=== PATIENT | female | born 1935 | race Caucasian/White ===

== ENCOUNTER 2017-02-24 14:45 | Inpatient (IN) ==
--- NOTE | 2017-02-24 14:59 | PROVIDER DOCUMENTATION ---
HPI-Respiratory General - General Chief Complaint: Shortness of Breath Stated Complaint: SOB AND COUGH Time Seen by Provider: 02/24/17 14:56 Source: patient Allergies/Adverse Reactions: Patient Allergies Allergy/AdvReac Type Severity Reaction Status Date / Time No Known Allergies Allergy Verified 11/23/15 12:51 Home Medications: Home Medication List Medication Instructions Recorded Confirmed Last Taken Type Aspirin 81 mg PO HS 02/24/17 02/24/17 02/23/17 20:00 History 81 MG - History of Present Illness-Resp Nature of Presenting Problem: Patient is a 81 y/o F that presents with cough/congestion, shortness of breath, hoarseness x 1 week. patient denies chest pain, fever/chills. reports having dark stools and some constipation of late. Quality of Pain: reports: tightness Severity in ED: reports: moderate Onset/Duration: reports: gradual, 1 week ago Timing: reports: still present, constant Context: denies: recent chemotherapy, sports/exercise, aspiration/choking Cough Quality/Degree: reports: moderate, dry cough Current Respiratory Medication Therapy: Initiated see nurses note Modifying Factors: worse with: coughing Associated Symptoms: reports: cough, shortness of breath, short of breath, sore throat. denies: fever/chills, flu-like symptoms, muscle/bodyaches, nasal congestion, nasal drainage Similar Symptoms Previously?: No Recently seen or treated by another doctor?: No Review of Systems - Adult - REVIEW OF SYSTEMS - ADULT Constitutional: denies: chills, fever Eyes: reports: no symptoms reported Ears, Nose, Mouth & Throat: reports: hoarseness, throat pain. denies: ear discharge, ear pain Cardiovascular: denies: chest pain, palpitations, syncope Respiratory: reports: cough, shortness of breath. denies: wheezing Gastrointestinal: reports: other (dark stools). denies: abdominal pain, nausea , vomiting Genitourinary: reports: no symptoms reported Musculoskeletal: denies: back pain, joint pain, neck pain Integumentary: reports: no symptoms reported Neurological: reports: no symptoms reported Psychiatric: reports: no symptoms reported Endocrine: reports: no symptoms reported Hematologic/Lymphatic: reports: no symptoms reported Allergic/Immunologic: reports: no symptoms reported All Other Systems: Reviewed and Negative Past History - Adult - PAST MEDICAL HISTORY-ADULT Review of Records: reports: Old Records Reviewed, Nursing Assessment Review, Medications Reviewed Major Childhood Illnesses: reports: denies history Cardiovascular: reports: denies history Respiratory: reports: denies history Gastrointestinal: reports: denies history Obstetrical/Gynecological: reports: denies history Genitourinary: reports: denies history Musculoskeletal: reports: denies history Neurological: reports: denies history Endocrine/Immune: reports: denies history Other Conditions: reports: denies history - PRIOR SURGERIES/PROCEDURES Surgical/Procedure History: reports: none - IMMUNIZATION STATUS Childhood Immunizations: See Nurse Assessment Flu Vaccine: See Nurse Assessment - FAMILY HISTORY Family History: reviewed, not pertinent - SOCIAL HISTORY Smoking: non-smoker Living Situation: family Physical Exam-General - PHYSICAL EXAM-ADULT Initial Vital Signs Reviewed: Yes - CONSTITUTIONAL General Appearance: alert, mild distress - EYES Eyes: PERRL/EOMI, pink conjunctivae - HEAD, EARS, NOSE, MOUTH & THROAT HENMT: normocephalic/atraumatic, moist mucous membranes, normal ENT inspection - NECK Neck: full range of motion, normal inspection - RESPIRATORY Respiratory: lungs clear, normal breath sounds, no respiratory distress, no accessory muscle use - CARDIOVASCULAR Cardiovascular: regular rate, rhythm, no edema - GASTROINTESTINAL (ABDOMEN) Abdominal Exam: normal bowel sounds, non tender, soft - GENITOURINARY Rectal Exam: normal rectal tone. negative: black stool, hemorrhoids - MUSCULOSKELETAL Back Exam: no CVA tenderness, no vertebral tenderness Extremity: normal inspection, no pedal edema - SKIN Integumentary: pallor. negative: cyanosis - NEUROLOGIC Neurologic: clinical safety specialist II-XII nml as tested, no motor/sensory deficits - PSYCHIATRIC Psych/Mental Status: normal mood/affect, normal thought content, normal thought process, oriented x 3 Progress - PLAN OF CARE/RESULTS Progress/Plan/Lab Results: Vital Signs - 8 hr 02/24/17 14:47 02/24/17 15:03 02/24/17 17:20 Temperature 98.3 F Pulse Rate 63 60 60 Respiratory Rate 16 16 14 Blood Pressure 136/70 136/70 O2 Sat by Pulse Oximetry 98 98 Laboratory Results - last 24 hr 02/24/17 02/24/17 02/24/17 14:50 15:10 15:10 WBC RBC Hgb Hct MCV MCH MCHC RDW Std Deviation Plt Count MPV Immature Gran % (Auto) Neut % (Auto) Lymph % (Auto) [place] % (Auto) Eos % (Auto) Baso % (Auto) Immature Gran # (Auto) Neut # (Auto) Lymph # (Auto) [place] # (Auto) Eos # (Auto) Baso # (Auto) Specimen Type Sample Site pH pCO2 pO2 HCO3 Base Excess Oxyhemoglobin ABG O2 Sat (Calculated) ABG O2 Saturation ABG Carboxyhemoglobin ABG Methemoglobin A-a O2 Difference Total Hemoglobin Lactate Blood Gas Modality FiO2 % Sodium 135 L Potassium 3.7 Chloride 96 L Carbon Dioxide 25 Anion Gap 14 BUN 13 Creatinine 1.0 H Estimated GFR/1.73 m2 53 BUN/Creatinine Ratio 13 Glucose 112 H Calculated Osmolality 271 Calcium 9.9 Total Bilirubin 0.20 AST 57 H ALT 17 Alkaline Phosphatase 55 Troponin T 0.018 Total Protein 8.1 Albumin 4.3 Globulin 4.0 Albumin/Globulin Ratio 1.0 Stool Occult Blood NEGATIVE 02/24/17 02/24/17 15:10 16:13 WBC 4.29 L RBC 3.44 L Hgb 8.3 L Hct 28.3 L MCV 82.3 MCH 24.1 L MCHC 29.3 L RDW Std Deviation 20.7 H Plt Count 314 MPV 9.9 Immature Gran % (Auto) 0.2 Neut % (Auto) 50.3 Lymph % (Auto) 38.2 Sol[place] % (Auto) 8.2 Eos % (Auto) 2.6 Baso % (Auto) 0.5 Immature Gran # (Auto) 0.01 Neut # (Auto) 2.16 Lymph # (Auto) 1.64 Sol[place] # (Auto) 0.35 Eos # (Auto) 0.11 Baso # (Auto) 0.02 Specimen Type ARTERIAL Sample Site L BRACHIAL pH 7.52 H pCO2 32 L pO2 77 HCO3 27.4 H Base Excess 3.1 H Oxyhemoglobin 95.9 ABG O2 Sat (Calculated) 10.2 L ABG O2 Saturation 99.1 ABG Carboxyhemoglobin 2.30 ABG Methemoglobin 1.0 A-a O2 Difference 33.0 Total Hemoglobin 7.5 L Lactate 1.00 Blood Gas Modality ROOM AIR FiO2 % 21.0 Sodium Potassium Chloride Carbon Dioxide Anion Gap BUN Creatinine Estimated GFR/1.73 m2 BUN/Creatinine Ratio Glucose Calculated Osmolality Calcium Total Bilirubin AST ALT Alkaline Phosphatase Troponin T Total Protein Albumin Globulin Albumin/Globulin Ratio Stool Occult Blood Orders Category Date Time Status CHEST-2 VIEWS [RAD] Stat Exams 02/24/17 14:55 Completed ABG [RESP] Routine Lab 02/24/17 16:13 Completed CBC WITH DIFF [HEME] Stat Lab 02/24/17 15:10 Completed CK PROFILE [SP CHEM] Stat Lab 02/24/17 17:08 Ordered COMPREHENSIVE METABOLIC PANEL [CHEM] Stat Lab 02/24/17 15:10 Completed OCCULT BLOOD SCREEN STOOL PL Stat Lab 02/24/17 14:50 Completed TROPONIN T Stat Lab 02/24/17 15:10 Completed TROPONIN T Stat Lab 02/24/17 17:08 Ordered Albuterol 2.5MG/Ipratrop 0.5MG [Duoneb (A & A)] Med 02/24/17 17:08 Discontinued 3 ml INH NOW ONE Aerosol Treatments Routine Oth 02/24/17 17:08 Active Aerosol Treatments Stat Oth 02/24/17 17:08 Active EKG [EKG] Stat Ther 02/24/17 14:55 Draft EKG [EKG] Stat Ther 02/24/17 17:08 Draft Result Diagrams: 02/24/17 15:10 02/24/17 15:10 - EKG 1 Time of EKG reading by physician:: 15:05 EKG Read and Signed by:: Jozef Conde EKG Interpretation (*Must complete 3 of following elements*): Abnormal Rate: 60 Rhythm: regular rhythm QRS: normal ST Wave: non-specific ST changes 2 Time of EKG reading by physician:: 17:21 EKG Read and Signed by:: Jozef Conde EKG Interpretation (*Must complete 3 of following elements*): Abnormal Rate: 58 Rhythm: regular rhythm QRS: normal ST Wave: non-specific ST changes - XRAY 1 XRAY Study: Chest Impression: Abnormal XRAY Interpretation: cmg, calicifed granuloma Departure - Departure Date of Disposition Decision: 02/24/17 Time of Disposition Decision: 17:45 DIAGNOSIS: Weakness Dyspnea Qualifiers: Dyspnea type: shortness of breath Qualified Code(s): R06.02 - Shortness of breath Anemia Qualifiers: Anemia type: unspecified type Qualified Code(s): D64.9 - Anemia, unspecified Disposition: ADMITTED INPATIENT 09 Certified Medical Emergency: Emergent Condition: Stable Additional Freetext Instructions: ED Follow Up Instructions: You have been treated by a care provider in the Emergency Department. These instructions are being provided to you so you can have an understanding of how to care for yourself upon discharge. Upon discharge from the Emergency Department, you are responsible for making arrangements for follow-up care by a physician of your choice. Take all prescribed medications as directed. Return to the Emergency Department immediately for any new or worsening symptoms. You may call the Physician Referral phone number at [phone] to obtain a list of Physicians who are taking new patients. - Critical Care Note This patient required my direct & personal management of CC.: No
--- NOTE | 2017-02-24 15:08 | EKG Report ---
Test Performed on : 02/24/2017 3:05:27 PM Test Reason : sob Blood Pressure : / mmHG Vent. Rate : 060 BPM Atrial Rate : 258 BPM P-R Int : 000 ms QRS Dur : 064 ms QT Int : 360 ms P-R-T Axes : 000 049 165 degrees QTc Int : [address] \T\ T wave abnormality, consider inferior ischemia Abnormal ECG When compared with ECG of 23-NOV-2015 15:37, Junctional rhythm. has replaced Sinus rhythm. Nonspecific T wave abnormality, improved in Anterior leads QT has shortened Unconfirmed Result
[2017-02-24 15:20] LABS: MANUAL DIFF NEEDED? NO
[2017-02-24 15:27] LABS: BASO% 0.5 % (0.0-0.8); EOS# 0.11 X1000 (0.0-0.7); EOS% 2.6 % (0.0-10.0); HEMATOCRIT 28.3 % (37.0-47.0); HEMOGLOBIN 8.3 g/dL (12.0-16.0); IMM GRAN# 0.01 X1000 (0.0-0.04); IMM GRAN% 0.2 % (0.0-0.5); LYMPH# 1.64 X1000 (1.2-3.4); LYMPH% 38.2 % (20.5-51.1); MCH 24.1 PG (27-31); MCHC 29.3 g/dL (33-37); MCV 82.3 FL (81-99); MONO# 0.35 X1000 (0.11-0.59); MONO% 8.2 % (1.7-9.3); MPV 9.9 FL (7.4-10.4); NEUT% 50.3 % (42.2-75.2); PLT 314 X1000 (130-400); RBC 3.44 XMIL (4.2-5.4)
--- NOTE | 2017-02-24 15:39 | Diag Imaging Result Doc PS360 ---
CHEST-2 VIEWS - 02/24/2017 INDICATION: cough TECHNIQUE: COMPARISON: 11/23/2015 FINDINGS: Stable mild cardiomegaly. Stable calcified granuloma in the right midlung. No infiltrates or edema. No pneumothorax or pleural effusion. IMPRESSION: Stable mildly enlarged heart shadow. On the prior CT this was due to a small pericardial effusion. No change from prior. Electronically signed by Husam Boles 02/24/2017 3:37 PM
[2017-02-24 15:55] LABS: ALBUMIN 4.3 g/dL (3.5-5.0); CALCIUM 9.9 mg/dL (8.8-10.2); POTASSIUM 3.7 mmol/L (3.5-5.1); TOTAL BILIRUBIN 0.2 mg/dL (0.20-1.00); TOTAL PROTEIN 8.1 g/dL (6.3-8.3)
[2017-02-24 15:59] LABS: OCCULT BLOOD 1 NEGATIVE (NEGATIVE)
[2017-02-24 16:35] LABS: BE 3.1 mmoll (-3.0-3.0); BLOOD TYPE ARTERIAL; O2(CT) 10.2 mL/dL (15.0-23.0); PCO2(98.6) 32 mmHg (35-45); PO2(98.6) 77 mmHg (60-100); SAMPLE BLOOD; SAO2 99.1 % (95.0-100.0); THB 7.5 g/dL (11.5-17.4); pH(98.6) 7.52 (7.35-7.45)
[2017-02-24 16:38] LABS: DRAW SITE L BRACHIAL; MODALITY ROOM AIR
[2017-02-24] MEDS ORDERED: DUONEB (A & A) INH ONE (17:08)
--- NOTE | 2017-02-24 17:26 | EKG Report ---
Test Performed on : 02/24/2017 5:21:26 PM Test Reason : sob Blood Pressure : / mmHG Vent. Rate : 058 BPM Atrial Rate : 055 BPM P-R Int : 000 ms QRS Dur : 062 ms QT Int : 464 ms P-R-T Axes : 000 041 058 degrees QTc Int : 455 ms Junctional rhythm. Nonspecific T wave abnormality Abnormal ECG When compared with ECG of 24-FEB-2017 15:05, (Unconfirmed) T wave inversion no longer evident in Lateral leads QT has lengthened Unconfirmed Result
[2017-02-24 18:35] LABS: CK INDEX 1.2 (0.0-2.5); CK-MB 4.38 ng/mL (0.0-5.0)
[2017-02-24] MEDS ORDERED: ZOFRAN IV PRN (19:24)
[2017-02-24] MEDS ORDERED: TYLENOL PO PRN (19:24)
[2017-02-24] MEDS ORDERED: NS 1,000 ML IV ONE (19:24)
[2017-02-25 06:50] LABS: BASO% 0.7 % (0.0-0.8); EOS# 0.06 X1000 (0.0-0.7); EOS% 1.3 % (0.0-10.0); HEMATOCRIT 25.6 % (37.0-47.0); HEMOGLOBIN 7.3 g/dL (12.0-16.0); IMM GRAN# 0.02 X1000 (0.0-0.04); IMM GRAN% 0.4 % (0.0-0.5); LYMPH# 1.58 X1000 (1.2-3.4); LYMPH% 34.8 % (20.5-51.1); MANUAL DIFF NEEDED? NO; MCH 23.5 PG (27-31); MCHC 28.5 g/dL (33-37); MCV 82.3 FL (81-99); MONO# 0.27 X1000 (0.11-0.59); MONO% 5.9 % (1.7-9.3); MPV 9.7 FL (7.4-10.4); NEUT% 56.9 % (42.2-75.2); PLT 306 X1000 (130-400); RBC 3.11 XMIL (4.2-5.4)
[2017-02-25 07:01] LABS: ALBUMIN 3.6 g/dL (3.5-5.0); POTASSIUM 3.7 mmol/L (3.5-5.1); TOTAL BILIRUBIN 0.4 mg/dL (0.20-1.00)
[2017-02-25] MEDS ORDERED: SYNTHROID PO ONE (12:31)
[2017-02-25 13:10] LABS: IRON SATURATION 14 %; TIBC 337 ug/dL; TOTAL IRON 46 ug/dL (49-151); UNBOUND IRON 291 ug/dL (112-346)
[2017-02-25 16:57] LABS: MANUAL DIFF NEEDED? NO
[2017-02-25 17:46] LABS: BASO% 0.5 % (0.0-0.8); EOS# 0.05 X1000 (0.0-0.7); EOS% 1.2 % (0.0-10.0); HEMATOCRIT 24.8 % (37.0-47.0); HEMOGLOBIN 7.4 g/dL (12.0-16.0); IMM GRAN# 0.01 X1000 (0.0-0.04); IMM GRAN% 0.2 % (0.0-0.5); LYMPH# 1.52 X1000 (1.2-3.4); LYMPH% 36.9 % (20.5-51.1); MCHC 29.8 g/dL (33-37); MCV 80.5 FL (81-99); MONO# 0.28 X1000 (0.11-0.59); MONO% 6.8 % (1.7-9.3); MPV 9.9 FL (7.4-10.4); NEUT% 54.4 % (42.2-75.2); PLT 305 X1000 (130-400); RBC 3.08 XMIL (4.2-5.4)
[2017-02-26] MEDS: SYNTHROID PO SCH (06:20)
[2017-02-26 16:10] LABS: HEMATOCRIT 26.4 % (37.0-47.0); HEMOGLOBIN 7.8 g/dL (12.0-16.0)
[2017-02-26] MEDS ORDERED: TYLENOL PO ONE (16:11)
[2017-02-26] MEDS ORDERED: BENADRYL PO ONE (16:11)
[2017-02-27 05:42] LABS: HEMATOCRIT 30.7 % (37.0-47.0); HEMOGLOBIN 9.3 g/dL (12.0-16.0)
[2017-02-27] MEDS: SYNTHROID PO SCH (06:00)
[2017-02-27 14:49] LABS: MANUAL DIFF NEEDED? NO
[2017-02-27 14:50] LABS: BASO% 0.8 % (0.0-0.8); EOS# 0.09 X1000 (0.0-0.7); EOS% 2.3 % (0.0-10.0); HEMATOCRIT 31.1 % (37.0-47.0); HEMOGLOBIN 9.6 g/dL (12.0-16.0); IMM GRAN# 0.02 X1000 (0.0-0.04); IMM GRAN% 0.5 % (0.0-0.5); LYMPH# 1.14 X1000 (1.2-3.4); LYMPH% 29.2 % (20.5-51.1); MCH 25.6 PG (27-31); MCHC 30.9 g/dL (33-37); MCV 82.9 FL (81-99); MONO# 0.29 X1000 (0.11-0.59); MONO% 7.4 % (1.7-9.3); MPV 9.4 FL (7.4-10.4); NEUT% 59.8 % (42.2-75.2); PLT 270 X1000 (130-400); RBC 3.75 XMIL (4.2-5.4)
[2017-02-27 14:54] VITALS: BP 148/90
[2017-02-28 15:54] LABS: ALLEN TEST NO
[2017-02-28] MEDS ORDERED: SYNTHROID PO ONE (18:15)
--- NOTE | 2017-03-10 08:29 | HISTORY AND PHYSICAL ---
HISTORY OF PRESENT ILLNESS: The patient is an 81-year-old patient of mine, who I have not seen for quite some time, over a year, and who apparently had not been getting her medications for over a year. She lives in assisted living. She presented to the emergency room complaining of a cough, congestion, and shortness of breath and hoarseness had been present for approximately a week. She denied any fever or chills. She denied any chest pain. She has been having some dark stools and has been constipated lately. She estimates these symptoms have been going on for approximately a week. When she arrived to the ER, she was on no home medications although she is supposed to be taking several including thyroid. PAST MEDICAL HISTORY: She has had a previous history of thyroid disease. Previous history of hypertension. No significant illnesses. PAST SURGICAL HISTORY: She denies any surgical procedures. ALLERGIES: She has an allergy to aspirin. No asthma or hay fever. SOCIAL HISTORY: She is a nonsmoker. She lives not with her family. She lives at assisted living. Her closest relative is a cousin in [place], just above [place], [place]. REVIEW OF SYSTEMS: Constitutional: She denies fever, chills, night sweats, weight gain or weight loss. Eyes: No change in visual acuity or any issues with her sclerae or conjunctiva. Ears, Nose, and Throat: She denies any sinusitis, otitis, but has had some hoarseness and throat pain. Cardiovascular: She denies chest pain, palpitations, edema, PND. Respiratory: She denies any significant phlegm production. She has got a cough and has been somewhat short of breath. Gastrointestinal: She has had some dark stools. Denies any vielka bleeding, melena, hematochezia. No significant abdominal pain. She has a tendency to be constipated. Genitourinary: No dysuria, hematuria, polyuria or pyuria. Musculoskeletal: No significant history of gout or significant specific joint abnormalities. She has had some arthralgias. Skin: No lesions. No rashes. No eczema. Neurologic: No focal deficits. No TIAs. No strokes. Psychiatric: She has no history of any significant psychiatric illnesses. Endocrine: She is on thyroid. She is weak and generally fatigued. No polyuria, polydipsia, or polyphagia. Hematologic: She denies any bleeding, clotting disorder, or any issues with her blood. VITAL SIGNS: At the time of admission, she had a temperature of 98.3 degrees, pulse was 63, respiratory of 16, blood pressure 136/70, O2 saturation was 98%. LABORATORY DATA: Her occult stool was negative. Her comp was negative. BUN was 13, creatinine 1. GFR was 53. Random blood sugar 112. Liver functions generally normal other than slightly elevated AST. Her CK was normal. Troponin was 0.018. CBC: White count was 4290, hematocrit was 28, platelet count was 314,000. Her differential was relatively normal. She had a blood gas drawn on room air; pH was 7 .2, pCO2 was 32, PO2 was 77, carboxyhemoglobin was 2.3. She had an EKG that was regular rhythm and rate. Nonspecific ST-segment changes, otherwise, negative. This was x2. Chest x-ray had cardiomegaly and calcified granuloma. DIAGNOSES ON ADMISSION: 1. Weakness. 2. History of thyroid disease. 3. History of anemia, normochromic. PLAN: She was admitted to the hospital for an evaluation. cc: Jozef Conde MD
--- NOTE | 2017-03-10 17:06 | DISCHARGE SUMMARY ---
ADMISSION DATE: 02/26/2017 DISCHARGE DATE: 02/27/2017 She is a patient of mine that I have not seen in quite some time. Lives in assisted living likewise. She has not been getting her medications filled, one of which is Synthroid for perhaps a year, so she was admitted from the ER with anemia and weakness and a history of perhaps some GI bleeding while she was hospitalized her hematocrit was 28.3. We followed it with hydration fluids, it dropped to 24.8, at which point she was transfused up to 31 on 02/27. Throughout the hospital stay her white count was relatively normal differential but was generally below the normal level on the low side. Platelet count was adequate. She had a relatively normal differential. Blood gases on room air showed that she had a pH 752, pCO2 32, PO2 77. She had a chemistry done on admission which revealed a GFR estimated at 53, BUN 13, creatinine 1.0. Electrolytes were sodium 135, potassium 3.7, chloride 96, CO2 25, mild elevation of her AST. We did a thyroid, her TSH was 153. She had some mild elevations of her CPK that were nonspecific. We did an iron study 46, TIBC 337, 14% saturation. Her unsaturated iron binding was 293. During this hospital stay she had a chest x-ray that was done and it was generally mild cardiomegaly, calcified granuloma in the right mid lung, no infiltrates or edema, no pneumothorax, no effusions. She had electrocardiograms that were negative. Her stools were negative. While she was here in the hospital she had no specific microbiology tested. Her medications during this stay included a dose of Synthroid, she was given albuterol treatments, levothyroxine 50, p.r.n. Tylenol, Benadryl for her transfusion which she tolerated without issues. She was discharged on 02/27, placed on Synthroid, and we will follow her up in the hospital. cc: Jozef Conde MD
== END 2017-02-27 19:19 | disposition home or self-care (01) ==
LOC: P.ED 14:45 → P.MEDSURG 14:45
PROVIDERS: ADMIT Internal Medicine; ATTEND Internal Medicine

== ENCOUNTER 2019-07-01 13:48 | Inpatient (IN) ==
[2019-07-01] MEDS ORDERED: MORPHINE IV ONE (14:24)
--- NOTE | 2019-07-01 14:38 | PROVIDER DOCUMENTATION ---
HPI-General Adult - General Chief Complaint: Fall Stated Complaint: FALL Time Seen by Provider: 07/01/19 14:11 Source: patient, RN/MD Allergies/Adverse Reactions: Patient Allergies Allergy/AdvReac Type Severity Reaction Status Date / Time Sulfa (Sulfonamide Allergy Unknown Verified 07/01/19 14:49 Antibiotics) Home Medications: Home Medication List Medication Instructions Recorded Confirmed Last Taken Type Aspirin 81 mg PO HS 02/24/17 07/01/19 06/30/19 History Levothyroxine [Synthroid] 100 microgm PO DAILY 02/27/17 07/01/19 07/01/19 History Acetaminophen [Tylenol] 1 tab PO PRN PRN 07/01/19 07/01/19 07/01/19 History Difluprednate [Durezol] 1 drp OPHTHALMIC (EYE) DAILY 07/01/19 07/01/19 07/01/19 History Diphenhydramine [Benadryl] 1 tab PO QHS PRN 07/01/19 07/01/19 06/30/19 History Docusate Sodium [Colace] 1 tab PO BID 07/01/19 07/01/19 07/01/19 History Multivitamin [Multivitamins] 1 cap PO DAILY 07/01/19 07/01/19 07/01/19 History Nepafenac [Ilevro] 1 drp OPH DAILY 07/01/19 07/01/19 07/01/19 History Polyvinyl Alcohol/Povidone/Pf 1 drp OPH PRN PRN 07/01/19 07/01/19 Unknown History [Refresh Classic Eye Drops] - History of Present Illness -Gen Adult Nature of Presenting Problems: HOSPICE PATIENT WHO IS GETTING D/C FROM HOSPICE RIGHT NOW CAME IN TODAY S/P FALL LAST NIGHT AND DID X-RAY OF HIP WHICH REVEAL POSSIBLE LEFT HIP FRACTURE. PATIENT STATES SHE IS NOT SURE IF SHE LOC AND DID HIT HER HEAD. CURRENTLY PAIN 8/10 OF LEFT HIP. DENIES FEVER, CHILL, NIGHT SWEATS, DIZZINESS, LIGHTHEADEDNESS, BLURRY VISION, SORE THROAT, CHEST PAIN, DYSPNEA, ABDOMINAL PAIN, N/V/D/C, MYALGIA, ARTHRALGIA, NEW RASH/LESION, AND HEAT OR COLD INTOLERANCE. Location of Pain/Injury: reports: lower extremity Pain Radiation: reports: no radiation Quality of Pain: reports: aching Severity: reports: mild Onset/Duration: reports: other (YESTERDAY) Timing: reports: still present Review of Systems - Adult - REVIEW OF SYSTEMS - ADULT Constitutional: denies: chills, fever, fatique, night sweats, weight loss Eyes: denies: blurred vision Ears, Nose, Mouth & Throat: denies: ear pain, sinus problem, throat pain Cardiovascular: reports: no symptoms reported Respiratory: reports: no symptoms reported Gastrointestinal: reports: no symptoms reported Genitourinary: reports: no symptoms reported Musculoskeletal: reports: joint pain (HIP PAIN (LEFT)) Integumentary: reports: no symptoms reported Neurological: reports: no symptoms reported Psychiatric: reports: no symptoms reported Endocrine: reports: no symptoms reported Hematologic/Lymphatic: reports: no symptoms reported Allergic/Immunologic: reports: no symptoms reported Past History - Adult - PAST MEDICAL HISTORY-ADULT Review of Records: reports: Old Records Reviewed Major Childhood Illnesses: reports: denies history Cardiovascular: reports: denies history Respiratory: reports: denies history Gastrointestinal: reports: denies history Obstetrical/Gynecological: reports: denies history Genitourinary: reports: denies history Musculoskeletal: reports: denies history Neurological: reports: denies history Endocrine/Immune: reports: denies history Other Conditions: reports: denies history - PRIOR SURGERIES/PROCEDURES Surgical/Procedure History: reports: none - IMMUNIZATION STATUS Childhood Immunizations: See Nurse Assessment Flu Vaccine: See Nurse Assessment - FAMILY HISTORY Family History: reviewed, not pertinent Physical Exam-General - PHYSICAL EXAM-ADULT Initial Vital Signs Reviewed: Yes - CONSTITUTIONAL General Appearance: appears well, alert, no apparent distress - EYES Eyes: PERRL/EOMI - HEAD, EARS, NOSE, MOUTH & THROAT HENMT: normocephalic/atraumatic, moist mucous membranes - NECK Neck: non-tender, full range of motion, supple - RESPIRATORY Respiratory: chest non-tender, lungs clear, normal breath sounds, no pleuratic chest pain, no respiratory distress, no accessory muscle use - CARDIOVASCULAR Cardiovascular: normal peripheral pulses, regular rate, rhythm, no edema, no gallop, no JVD, no murmur - GASTROINTESTINAL (ABDOMEN) Abdominal Exam: normal bowel sounds, non tender, soft, no organomegaly - MUSCULOSKELETAL Back Exam: normal inspection, no CVA tenderness, no vertebral tenderness Extremity: other (LEFT HIP PAIN ON PALPATION AND LEFT LOWER EXTREMITY APPEARS SHORTER THAN RIGHT.) - SKIN Integumentary: normal color, normal turgor, warm/dry - NEUROLOGIC Neurologic: grossly normal - PSYCHIATRIC Psych/Mental Status: normal mood/affect, normal thought content, normal thought process, oriented x 3 Progress - PLAN OF CARE/RESULTS Progress/Plan/Lab Results: Orders Category Date Time Status FALL Precautions NOW Care 07/01/19 14:24 Active NPO Diet 07/01/[address] Diet [address] Time Active CT EXT LOWER LEFT W/O CON [CT] Stat Exams 07/01/19 14:21 Ordered BASIC METABOLIC PANEL [CHEM] Stat Lab 07/01/19 14:21 Uncollected CBC WITH DIFF [HEME] Stat Lab 07/01/19 14:21 Uncollected MAGNESIUM [CHEM] Stat Lab 07/01/19 14:21 Uncollected PROTIME WITH INR [COAG] Stat Lab 07/01/19 14:21 Uncollected PTT [COAG] Stat Lab 07/01/19 14:21 Uncollected URINALYSIS [URINALYSIS] Stat Lab 07/01/19 14:21 Uncollected Morphine Med 07/01/19 14:24 Discontinued 2 mg IV NOW ONE EKG [EKG] Stat Ther 07/01/19 14:21 Ordered Result Diagrams: 07/01/19 14:35 07/01/19 14:35 - REASSESSMENT Reassessment #1 Time Reassessed: 16:22 Status: other (PATIENT DENIES ANY RIGHT HIP DISCOMFORT AND STATES HER RIGHT HIP IS FINE AND IS WHERE THE LEFT HURTS. ON MY EXAMINATION, THERE IS NO RIGHT HIP TENDRENSS ON PALPATION. CT SCAN OF LEFT HIP DID NOT REVEAL ANY FRACTURE. LIEKLY HIP STRAIN. PATIENT WILL BE DISCHARGED THERE IS NO FRACTURE OR DISLOCATINO AND LABS UNREMARKABLE. PENDING UA.) - XRAY 1 XRAY Study: Chest ([facility] - [address], [address], [place] [address] [facility] - [address] , [place] [address] Department of Imaging Patient: JUNI MCCOY JADM Date: 07/01/19MR#: [id number] : 5ADM Status: REG ERAt#: [id number] Age/Sex: 84/FRoom/Bed: Loc: ED Ordering Physician: Manuel Irwin MD Family Physician: Jozef Conde MD Reason for Procedure: hip fracture Signed EXAM: CHEST-1 VIEW HISTORY: hip fracture TECHNIQUE: Single view COMPARISON: 02/24/2017 FINDINGS: The lungs are well expanded. No contusion. No pneumothorax. The heart is mildly enlarged. The vessels are not distended. There are no infiltrates. No effusion identified. Moderate scoliosis. IMPRESSION: No acute injury. Electronically signed by Soren Mueller 07/01/2019 3:41 PM 07/01/19 1541 Interpreting Physician: Soren Mueller MD Dictated Date/Time: 07/01/19 1540 cc: Manuel Irwin MD; Jozef Conde MD) - CT/MRI 1 CT Study: Head ([facility] - [address] [facility] [address], [place] [address] [facility] - [address] [place] [address] Department of Imaging Patient: JUNI MCCOY Date: 07/01/19#: [id number] : 5ADM Status: REG [facility]#: [id number] Age/Sex: 84/FRoom/Bed: Loc: ED Ordering Physician: Manuel Irwin MD Family Physician: Jozef Conde MD Reason for Procedure: S/P FALL; HIT HEAD; UNKONWN LOC Signed EXAM: CT HEAD W/O CONTRAST HISTORY: S/P FALL; HIT HEAD; UNKONWN LOC TECHNIQUE: CT head without contrast COMPARISON: 06/10/2017 FINDINGS: No parenchymal hemorrhage. No epidural or subdural hematoma. No subarachnoid hemorrhage. There is atrophy with prominent microvascular ischemic changes. No mass identified on this noncontrasted exam. No hydrocephalus. No skull fracture. IMPRESSION: No hemorrhage. No intracranial injury. This exam was performed using automated exposure control, adjustment of mA or kV according to patient size, and/or use of iterative reconstruction technique. Electronically signed by Soren Mueller 07/01/2019 3:39 PM 07/01/191538 Interpreting Physician: Soren Mueller MD Dictated Date/Time: 07/01/191536 cc: Manuel Irwin MD; Jozef Conde MD), other ([facility] - [address] [place] [address] [address] [id number] [facility] - [address] [place] [address] Department of Imaging Patient: JUNI MCCOY Date: 07/01/19#: [id number] : 5ADM Status: [facility] ERAcct#: [id number] Age/Sex: 84/FRoom/Bed: Loc: ED Ordering Physician: Manuel Irwin MD Family Physician: Jozef Conde MD Reason for Procedure: SUSPECT SUBCAPITAL LEFT PROXIMAL FEMORAL FRACUTRE Signed EXAM: CT PELVIS W/O CONTRAST INDICATION: SUSPECT SUBCAPITAL LEFT PROXIMAL FEMORAL FRACTURE TECHNIQUE: This exam was performed using automated exposure control, adjustment of mA or kV according to patient size, and/or use of iterative reconstruction technique. COMPARISON: None. FINDINGS: The bones are diffusely osteopenic. There is degenerative arthropathy at the lower lumbar spine, sacroiliac joints, and hip joints. There is a questionable tiny defect seen in the subcapital region of the right hip. It is best seen on image 43 of series 300 and image 38 of series 301. It is of unknown acuity. Acute nondisplaced fracture cannot completely be excluded. Correlate clinically for right hip pain. No other discrete fracture, dislocation, or significant intrinsic osseous lesion is appreciated. Surrounding soft tissues are essentially unremarkable. There is atherosclerotic calcification. There is no evidence of acute intrapelvic pathology. IMPRESSION: 1.Diffuse osteopenia. 2.Possible small cortical defect involving the right subcapital region. Although very questionable, a nondisplaced fracture is possible in the right clinical scenario. 3.No left hip fracture is appreciated. 4.Multi joint degenerative arthropathy. Electronically signed by Darien Tompkins 07/01/2019 4:04 PM 07/01/19 8786 Interpreting Physician: Darien Tompkins MD Dictated Date/Time: 07/01/19 5794 cc: Manuel Irwin MD; Jozef Conde MD) Departure - Departure Date of Disposition Decision: 07/01/19 Time of Disposition Decision: 16:24 DIAGNOSIS: Hip joint painful on movement Disposition: OTHER 70 Certified Medical Emergency: Emergent Condition: Stable Additional Instructions: ED Follow Up Instructions: You have been treated by a care provider in the Emergency Department. These in structions are being provided to you so you can have an understanding of how to care for yourself upon discharge. Upon discharge from the Emergency Department, you are responsible for making arrangements for follow-up care by a physician of your choice. Take all prescribed medications as directed. Return to the Emergency Department immediately for any new or worsening symptoms. You may call the Physician Referral phone number at [phone] to obtain a list of Physicians who are taking new patients. Referrals and Follow-Ups: Jozef Conde MD [Primary Care Provider] - - Critical Care Note This patient required my direct & personal management of CC.: No Attestation - Physician/ DIANA Attestation Patient care was provided by Advanced Practice Provider:: No The physician spent face to face time with patient:: Yes Advanced Practice Provider documentation review:: Supervising physician onsite and consulted in the evaluation and care of this patient. The physician did have a face to face encounter with the patient.
[2019-07-01 14:54] LABS: BASO# 0.01 X1000 (0.0-0.2); BASO% 0.2 % (0.0-0.8); EOS# 0.03 X1000 (0.0-0.7); EOS% 0.5 % (0.0-10.0); HEMATOCRIT 33.2 % (37.0-47.0); HEMOGLOBIN 10.4 g/dL (12.0-16.0); LYMPH# 0.89 X1000 (1.2-3.4); LYMPH% 13.9 % (20.5-51.1); MCH 28.9 PG (27-31); MCHC 31.3 g/dL (33-37); MCV 92.2 FL (81-99); MONO# 0.43 X1000 (0.11-0.59); MONO% 6.7 % (1.7-9.3); MPV 9.8 FL (7.4-10.4); NEUT# 5.04 X1000 (1.4-6.5); NEUT% 78.7 % (42.2-75.2); PLT 260 X1000 (130-400)
[2019-07-01 15:13] LABS: AGAP 14; BUN 16 mg/dL (8-22); CALCIUM 8.6 mg/dL (8.8-10.2); CHLORIDE 101 mmol/L (98-107); COSMO 278; CREATININE 0.7 mg/dL (0.5-0.9); ESTIMATED GFR > 60; GLUCOSE 157 mg/dL (70-104); MAGNESIUM 2.1 mg/dL (1.5-2.7); POTASSIUM 3.6 mmol/L (3.5-5.1); SODIUM 137 mmol/L (136-145); TCO2 22 mmol/L (25-35)
[2019-07-01 15:14] LABS: PROTIME 13.3 Seconds (11.0-16.0)
[2019-07-01 15:15] LABS: PTT 25.5 Seconds (22.3-41.8)
--- NOTE | 2019-07-01 15:41 | Diag Imaging Result Doc PS360 ---
EXAM: CT HEAD W/O CONTRAST HISTORY: S/P FALL; HIT HEAD; UNKONWN LOC TECHNIQUE: CT head without contrast COMPARISON: 06/10/2017 FINDINGS: No parenchymal hemorrhage. No epidural or subdural hematoma. No subarachnoid hemorrhage. There is atrophy with prominent microvascular ischemic changes. No mass identified on this noncontrasted exam. No hydrocephalus. No skull fracture. IMPRESSION: No hemorrhage. No intracranial injury. This exam was performed using automated exposure control, adjustment of mA or kV according to patient size, and/or use of iterative reconstruction technique. Electronically signed by Soren Mueller 07/01/2019 3:39 PM
--- NOTE | 2019-07-01 15:43 | Diag Imaging Result Doc PS360 ---
EXAM: CHEST-1 VIEW HISTORY: hip fracture TECHNIQUE: Single view COMPARISON: 02/24/2017 FINDINGS: The lungs are well expanded. No contusion. No pneumothorax. The heart is mildly enlarged. The vessels are not distended. There are no infiltrates. No effusion identified. Moderate scoliosis. IMPRESSION: No acute injury. Electronically signed by Soren Mueller 07/01/2019 3:41 PM
--- NOTE | 2019-07-01 16:06 | Diag Imaging Result Doc PS360 ---
EXAM: CT PELVIS W/O CONTRAST INDICATION: SUSPECT SUBCAPITAL LEFT PROXIMAL FEMORAL FRACTURE TECHNIQUE: This exam was performed using automated exposure control, adjustment of mA or kV according to patient size, and/or use of iterative reconstruction technique. COMPARISON: None. FINDINGS: The bones are diffusely osteopenic. There is degenerative arthropathy at the lower lumbar spine, sacroiliac joints, and hip joints. There is a questionable tiny defect seen in the subcapital region of the right hip. It is best seen on image 43 of series 300 and image 38 of series 301. It is of unknown acuity. Acute nondisplaced fracture cannot completely be excluded. Correlate clinically for right hip pain. No other discrete fracture, dislocation, or significant intrinsic osseous lesion is appreciated. Surrounding soft tissues are essentially unremarkable. There is atherosclerotic calcification. There is no evidence of acute intrapelvic pathology. IMPRESSION: 1.Diffuse osteopenia. 2.Possible small cortical defect involving the right subcapital region. Although very questionable, a nondisplaced fracture is possible in the right clinical scenario. 3.No left hip fracture is appreciated. 4.Multi joint degenerative arthropathy. Electronically signed by Darien Tompkins 07/01/2019 4:04 PM
[2019-07-01 16:25] LABS: URINE SOURCE CATH
[2019-07-01 16:35] LABS: BILIRUBIN URINE NEGATIVE (NEGATIVE); BLOOD URINE SMALL (NEGATIVE); COLOR YELLOW; GLUCOSE URINE NEGATIVE (NEGATIVE); KETONE URINE NEGATIVE (NEGATIVE); LEUKOCYTES URINE NEGATIVE (NEGATIVE); NITRITE URINE NEGATIVE (NEGATIVE); PH URINE 7.5; PROTEIN URINE TRACE mg/dL (NEGATIVE); SP GRAVITY URINE 1.012; TURBIDITY URINE CLEAR (CLEAR); UROBILINOGEN URINE NORMAL (NORMAL)
[2019-07-01 16:36] LABS: UR EPITHELIAL CELLS <10 /HPF (<10); URINE BACTERIA NEGATIVE /HPF; URINE WBC <10 /HPF (<10)
[2019-07-01] MEDS ORDERED: ZOFRAN IV PRN (18:20)
[2019-07-01] MEDS ORDERED: TYLENOL PO PRN (18:23)
[2019-07-01] MEDS ORDERED: BENADRYL PO PRN (18:23)
--- NOTE | 2019-07-01 19:08 | HISTORY AND PHYSICAL ---
CHIEF COMPLAINT: Fall, left hip pain. HPI: This is an 84-year-old female who is a resident of [facility] who presents to the emergency room complaining of left hip pain after a fall. Ms. Masterson states she was standing up to turn the light off in a room and she was not using her walker. She felt dizzy. She lost her balance and fell. She had left hip pain at that time. She called her EMS, they did place her in bed as she did not want to come to the emergency room. She stated they did tell her if her hip kept hurting or she had any more trouble to call and they would bring her to the ER. This morning they checked on her and she did not answer the door. Therefore the hospice nurse was called. After her evaluation EMS was called and she was brought to the emergency room for evaluation. CT of the pelvis revealed possible small cortical defect on the right subcapsular region although was questionable, a nondisplaced fracture is possible in right clinical scenario with no left hip fracture appreciated. Ms France does not complain of any right hip pain. On exam she has full movement of her right lower extremity. Her left lower extremity is limited to pain at the hip level. She has been treated for lower respiratory infection by Dr. Jersey Gee who follows her with hospice. Per hospice nurse she has completed 7 days of Levaquin and Mucinex. Ms. Masterson states that she is still having a cough with yellow secretions although she do not think they are as thick as they were at the beginning. She denied any fevers or chills. PAST MEDICAL HISTORY: Thyroid disease, glaucoma, coronary artery disease. PAST SURGICAL HISTORY: Denies. SOCIAL HISTORY: She is a resident at [facility]. She was recently on hospice although this has been rescinded prior to the ER visit. ALLERGIES: Sulfa which causes unknown reaction. HOME MEDICATIONS: A list will be obtained by the nursing staff and once verified will review and restart as appropriate. REVIEW OF SYSTEMS: Discussed with patient with pertinent positives stated in the HPI. She denied any syncope, any chest pain or palpitations, shortness of breath, PND, orthopnea, any nausea, vomiting, diarrhea, constipation, hematuria, dysuria, frequency, urgency. PHYSICAL EXAM: This is an 84-year-old female who is lying in the bed in the emergency room in no distress. VITAL SIGNS: Blood pressure is 153/74 with a heart rate of 96, respirations are 18, temperature is 98.9 degrees oral with room air saturations 96-98%. HEENT: Pupils equal, round, react to light. EOMs are intact. Sclerae anicteric. Head is normocephalic, atraumatic. Mucous membranes are dry. NECK: Supple with trachea midline. She does have thyromegaly. CARDIOVASCULAR: Regular rate and rhythm. S1 and S2 appreciated. She has no lower extremity edema. Calves are nontender bilateral, peripheral pulses palpable x4 extremities. PULMONARY: Breath sounds are clear with no increased work of breathing noted. Chest rise fall symmetric respiration. Chest wall is nontender to palpation. GASTROINTESTINAL: Abdomen soft, nontender, nondistended with bowel sounds in all 4 quadrants. : Gomez is patent to bedside bag with dark priscila urine draining. NEUROLOGIC: She is alert, oriented x3. SKIN: Warm and dry. LABS: WBC 6.4 with hemoglobin 10.4, hematocrit 33.2, platelets 260,000. Sodium 137, potassium 3.6, BUN 16, creatinine 0.7 with a glucose of 157. Urinalysis catheter specimen had small amount of blood otherwise essentially negative. Chest x-ray reveals no acute injury. Lungs are well expanded, no contusion, no pneumothorax. Heart is mildly enlarged, vessels are not distended, no infiltrates. CT of the pelvis diffuse osteopenia, possible small cortical defect involving the right subcapital region although very questionable, no left hip fracture is appreciated. ASSESSMENT AND PLAN: 1. Fall. 2. Dizziness. 3. Intravascular volume depletion. 4. Left hip pain status post fall. 5. Hypothyroid. PLAN: The patient will be admitted to the hospital. Will continue with gentle hydration. Check a CBC, CMP and TSH in the morning. We will review her home medications, continue as appropriate. We will consult Orthopedics in the morning. Recent antibiotics for lower respiratory infection. Patient completed 7 days of Levaquin. She does continue to have a small productive cough although no other symptoms. She is afebrile with no white count, will give no antibiotics at present. Will follow. She will be placed on fall precautions. Further treatments pending hospital course. Plan discussed with Dr Kwong. Dictated by JAYDE Alarcon for Jaylen Kwong MD cc: JAYDE Alarcon MD [facility]
--- NOTE | 2019-07-01 20:09 | HISTORY AND PHYSICAL ---
ADDENDUM: HISTORY OF PRESENT ILLNESS: I have seen and examined Ms. Masterson today. Ms. Masterson is an 84- year-old elderly female who is a resident of [facility]. Apparently, she has been treated for the past week by Dr. Jersey Gee for an upper respiratory tract infection with Levaquin. Last night, she woke up at about 12 to go and use the restroom. She apparently felt dizzy and fell down, was not using her walker, and sustained an injury to the left side. Paramedics came and put her in the bed. However, this morning, her healthcare nurse went there to evaluate her and patient could not get out of bed, so hospice nurse was called and patient was brought in because of intractable pain to the left side. PHYSICAL EXAMINATION: HEENT: Suggests that mucosa is kind of dry. NECK: She does have mild thyromegaly. CHEST: Clear. ABDOMEN: Soft. EXTREMITIES: The right lower extremity is very mobile without any tenderness. The left side is slightly limited in mobility at the hip level and some tenderness, but there was no area of any bruising and there was no deformity. NEUROLOGIC: Patient was awake, alert, and oriented. LABORATORY DATA: Has also been reviewed. She does have mild normocytic anemia. Her chemistry is within normal range. IMAGING STUDIES: Shows a pelvic CT scan that showed diffuse osteopenia, possible small cortical defect involving the right subcortical region. No left hip fracture was appreciated. There was a multi joint degenerative arthropathy. ASSESSMENT: 1. Status post mechanical fall resulting in trauma to the left hip. Strangely, the CT scan showing a possible right hip fracture. The right side is completely clinically without any signs of injury. I think patient might have just sustained soft tissue injury to the left hip and is just hurting from the trauma, but no obvious bone abnormality. The patient will be review, however, by Orthopedics tomorrow morning. For now will continue with adequate pain management for now. 2. Clinical volume depletion. Patient will be started on gentle IV hydration. 3. Recently treated lower respiratory tract infection. Chest x-ray was completely unremarkable. I think Ms. Masterson has actually finished her oral Levaquin which was prescribed for her. So for now, she does not look infectious. We will withhold any antimicrobials. 4. Hypothyroidism with mild thyromegaly. We will continue with the home levothyroxine. Please refer to the details of the history and physical which has been dictated by the RETAIL SERVICE SPECIALIST in the chart. cc: Jaylen Kwong MD
[2019-07-01] MEDS: ASPIRIN PO SCH (21:05)
[2019-07-01] MEDS: COLACE PO SCH (21:05)
[2019-07-02] MEDS: NS 1,000 ML IV SCH ×3 (04:33→18:39)
[2019-07-02 06:26] LABS: BASO# 0.02 X1000 (0.0-0.2); BASO% 0.3 % (0.0-0.8); EOS# 0.12 X1000 (0.0-0.7); HEMATOCRIT 31.8 % (37.0-47.0); HEMOGLOBIN 9.8 g/dL (12.0-16.0); IMM GRAN# 0.02 X1000 (0.0-0.04); IMM GRAN% 0.3 % (0.0-0.5); LYMPH# 0.99 X1000 (1.2-3.4); LYMPH% 16.6 % (20.5-51.1); MCH 28.3 PG (27-31); MCHC 30.8 g/dL (33-37); MCV 91.9 FL (81-99); MONO# 0.37 X1000 (0.11-0.59); MONO% 6.2 % (1.7-9.3); MPV 9.7 FL (7.4-10.4); NEUT# 4.44 X1000 (1.4-6.5); NEUT% 74.6 % (42.2-75.2); PLT 224 X1000 (130-400); RBC 3.46 XMIL (4.2-5.4); RDW 13.9 % (11.5-14.5); WBC 5.96 X1000 (4.8-10.8)
[2019-07-02 06:40] LABS: URINE SOURCE CATH
[2019-07-02 06:48] LABS: BILIRUBIN URINE NEGATIVE (NEGATIVE); BLOOD URINE MODERATE (NEGATIVE); COLOR YELLOW; GLUCOSE URINE NEGATIVE (NEGATIVE); KETONE URINE NEGATIVE (NEGATIVE); LEUKOCYTES URINE NEGATIVE (NEGATIVE); NITRITE URINE NEGATIVE (NEGATIVE); PROTEIN URINE TRACE mg/dL (NEGATIVE); SP GRAVITY URINE 1.013; TURBIDITY URINE CLEAR (CLEAR); UROBILINOGEN URINE NORMAL (NORMAL)
[2019-07-02 06:50] LABS: UR EPITHELIAL CELLS <10 /HPF (<10); URINE BACTERIA NEGATIVE /HPF; URINE RBC TNTC /HPF (<10); URINE WBC <10 /HPF (<10)
[2019-07-02 06:55] LABS: AGAP 8; ALB/GLOB RATIO 1.2; ALBUMIN 3.7 g/dL (3.5-5.0); ALKALINE PHOSPHATASE 68 U/L (32-104); BUN 11 mg/dL (8-22); CALCIUM 8.6 mg/dL (8.8-10.2); CHLORIDE 103 mmol/L (98-107); COSMO 273; CREATININE 0.6 mg/dL (0.5-0.9); ESTIMATED GFR > 60; GLUCOSE 97 mg/dL (70-104); GOT 24 U/L (10-30); GPT 16 U/L (10-36); POTASSIUM 3.3 mmol/L (3.5-5.1); SODIUM 137 mmol/L (136-145); TCO2 26 mmol/L (25-35); TOTAL PROTEIN 6.8 g/dL (6.3-8.3)
[2019-07-02] MEDS: CENTRUM SILVER PO SCH (08:08)
[2019-07-02] MEDS: COLACE PO SCH ×2 (08:08→21:28)
[2019-07-02] MEDS: SYNTHROID PO SCH (08:08)
[2019-07-02] MEDS: NON-FORMULARY BULK MED OPH SCH (09:59)
--- NOTE | 2019-07-02 14:49 | Diag Imaging Result Doc PS360 ---
EXAM: FEMUR MIN 2 VIEWS LEFT 07/02/2019 HISTORY: left leg pain TECHNIQUE: Left femur four views COMMENT: There is generalized osteopenia. There is no evidence of acute fracture or dislocation. IMPRESSION: No acute bony disease. Electronically signed by Bunny Crawford 07/02/2019 2:47 PM
--- NOTE | 2019-07-02 14:56 | ORTHOPAEDICS PROGRESS NOTE ---
DATE: 07/02/2019 CHIEF COMPLAINT: Fall and left hip pain. HISTORY OF PRESENT ILLNESS: This is an 84-year-old female who is a resident at [facility], who came to the emergency department today for left hip pain after she fell. She states she has recently had a sinus infection and she stood up today and started to get a little bit dizzy and she did not use her walker and she fell. She landed on her left hip and started having pain at that time. They called EMS and she was transferred to the emergency room. A CAT scan was performed of the pelvis and it showed no left hip fracture. Orthopedics was consulted to come see the patient. PAST MEDICAL HISTORY: Positive for thyroid disease, glaucoma, CAD. SOCIAL HISTORY: She lives at [facility]. She has been on hospice before but has since then improved. ALLERGIES: She states she is allergic to sulfa. HOME MEDICATIONS: She reports she takes aspirin 81 mg a couple days a week to keep her blood thin. She also states she is taking some kind of antibiotic for a sinus infection. She does not know the name of this. REVIEW OF SYSTEMS: A 12-point review of systems was performed. Pertinent positives listed in the HPI. PHYSICAL EXAMINATION: General: This is an 84-year-old female who is lying in bed comfortably, in no acute distress. Vital Signs: Temperature 99 degrees, pulse rate 93, respiratory rate 18, blood pressure 125/88, oxygen saturation 96% on room air. HEENT: Head is atraumatic, normocephalic. Eyes equal, round, reactive. Neck: Supple. Cardiovascular: Regular rate and rhythm. Respiratory: There is equal chest expansion, rise and fall. Abdomen: Abdomen is soft, nontender. Musculoskeletal: Left lower extremity exam: There is good range of motion to the knee and left hip. There is tenderness along the anterior joint line of the left hip and the left lateral hip as well as the femur. There is no obvious deformity. There is good sensation to the left lower extremity. There are good pedal pulses. There is no obvious shortening or external rotation. LABS: White blood cells 5.96, red blood cells 3.46, hemoglobin 9.8, hematocrit 31.8, platelets 224,000. INR is 1. Sodium 137, potassium 3.3, chloride 103, BUN 11, creatinine 0.6, calcium is 8.6. Urine is positive for blood. IMAGING: CT of the pelvis showed diffuse osteopenia, small cortical defect in right subcapital region of the hip. There is no obvious hip fracture on the left side. There is also some evident L-spine degeneration. ASSESSMENT: 1. Fall. 2. Left hip pain due to fall. PLAN: We plan to monitor Ms. Masterson while she is in the hospital. She will need to use her walker while she is here. She can be evaluated by physical therapy. We will go ahead and get a film on her left femur just to make sure there is no obvious fracture there. We will be available while she is in the hospital as needed. She will need to follow up in the clinic when she gets out, in roughly a week for repeat x-rays. Dictated by JAYDE Rivera for Rc Tinsley MD cc: JAYDE Rivera MD
--- NOTE | 2019-07-02 16:36 | PROGRESS NOTE ---
DATE: 07/02/2019 SUBJECTIVE: Today Ms. Masterson refers to be doing okay. Still has some pains in the left hip. She was pending ortho evaluation. OBJECTIVE: Vital signs: Blood pressure is 124/47, pulse of 89, respirations 18, temperature 99.0 degrees. The patient is saturating 96%. General: Ms. Masterson is an 84-year-old elderly female. She is in bed, no distress. HEENT: Mucosa is pink and moist. Anicteric. Acyanotic. Neck: Supple. Chest: Clear to auscultation. No crepitations. No rhonchi. Cardiovascular: Regular rate and rhythm. GI: Abdomen is soft, nontender. Bowel sounds present. Extremities: No pedal edema. MASSEUR/MASSEUSE: Patient is awake, alert, and oriented. Musculoskeletal: There is some mild tenderness to the left hip on range of movement. LABORATORY DATA: CBC is reviewed, and hemoglobin is 9.8, which is almost the same as yesterday. Chemistry is completely within normal range. TSH is 0.37. ASSESSMENT: 1. Status post mechanical fall resulting into trauma to soft skin injury of the left hip. X-rays so far have been unremarkable. Patient has been evaluated already by Orthopedics. A repeat x- ray of the left hip has not shown any broken bone. Physical therapy has been consulted. 2. Clinical volume depletion, improved. 3. Recently treated for respiratory tract infection. Subsequent chest x-ray has been unremarkable. 4. Hypothyroidism with mild thyromegaly. The patient is on levothyroxine. So in general Ms. Masterson is doing well. She has been evaluated by Orthopedics. Their note seems to shows suggest conservative management at this point. An x-ray of the left hip was also unremarkable for any fractures. They plan to repeat the x-ray within about a week from now. Will consult Physical Therapy to evaluate Ms. Masterson. cc: Jaylen Kwong MD
[2019-07-02] MEDS: ASPIRIN PO SCH (21:28)
[2019-07-03] MEDS: NON-FORMULARY BULK MED OPH SCH (11:13)
[2019-07-03] MEDS: CENTRUM SILVER PO SCH (11:14)
[2019-07-03] MEDS: SYNTHROID PO SCH (11:14)
[2019-07-03] MEDS: COLACE PO SCH ×2 (11:14→22:47)
[2019-07-03] MEDS: NS 1,000 ML IV SCH (13:03)
[2019-07-03] MEDS: ASPIRIN PO SCH (22:47)
[2019-07-04] MEDS: NS 1,000 ML IV SCH (03:18)
--- NOTE | 2019-07-04 07:04 | DISCHARGE SUMMARY ---
ADMISSION DATE: 07/01/2019 DISCHARGE DATE: 07/03/2019 DISPOSITION: Back to [facility] on Hospice Services. ADMISSION DIAGNOSES: 1. Status post mechanical fall. 2. Clinical volume depletion. 3. Hypothyroidism with mild thyromegaly. DISCHARGE DIAGNOSES: 1. Left hip pain due to mechanical fall with soft tissue trauma. X-rays were negative for fractures. 2. Clinical volume depletion, improved. 3. Recently treated respiratory tract infection. 4. Hypothyroidism with mild thyromegaly. The patient is on levothyroxine. DISCHARGE MEDICATIONS: 1. Aspirin 81 mg p.o. at bedtime. 2. Levothyroxine 100 mcg p.o. daily. 3. Acetaminophen. Medication that has been discontinued is Benadryl 25 mg p.o. at bedtime, and this is because the patient has been falling down, and this medication has potential to cause a lot of side effects in the elderly that could potentially cause some of the falling. PRESENTING COMPLAINT: Fall, left hip pain. HISTORY OF PRESENTING COMPLAINT: Ms. Diaz is an 84-year-old female who was brought into the emergency department from [facility] because of fall, sustaining injury to the left hip. Upon presentation, Ms. Diaz was evaluated, including a CT scan of the pelvis, which did not show any fracture, but there was diffuse osteopenia, and concern of maybe a right subcapital region fracture. The patient did not have any symptoms on the right side. Upon evaluation, Ms. Diaz was also found to be hurting on the left side, was admitted for pain management. HOSPITAL COURSE: Ms. Masterson was admitted to the medical floor, was evaluated by Physical Therapy as well as Orthopedics. Hospice nurse also came to evaluate her while she was in the hospital. Physical Therapy did recommend, on the initial evaluation, that Ms. Masterson could benefit from skilled intervention to fully recover her functionality. Ms. Masterson herself was very adamant that she would rather go home. This morning, she refers to be feeling a lot better. However, I still think that she is more functionally impaired to go to an assisted living. However, I understand that she is going back on hospice, and she would be able to have some physical activity as well. We will therefore discharge Ms. Masterson to go back to [facility] for rehab and hospice services. TIME SPENT: Time spent for discharge is 38 minutes. cc: Jaylen Kwong MD [facility] HOSPITALArlette
[2019-07-04 08:07] VITALS: BP 152/69
[2019-07-04] MEDS: CENTRUM SILVER PO SCH (10:25)
[2019-07-04] MEDS: SYNTHROID PO SCH (10:25)
[2019-07-04] MEDS: COLACE PO SCH (10:25)
[2019-07-04] MEDS: NON-FORMULARY BULK MED OPH SCH (10:28)
--- NOTE | 2019-07-04 11:15 | PROGRESS NOTE ---
DATE: 07/04/2019 SUBJECTIVE: This morning, Ms. Msaterson was actually sitting up in a chair. Her niece was at the bedside with her. OBJECTIVE: Vital Signs: Blood pressure is 152/69, pulse of 85, respirations 12, temperature is 98.2 degrees. General: Ms. Masterson was clinically stable. Extremities: Still remains with some tenderness in the left hip, but for most part, physical exam was unremarkable. PLAN: She is stable. She is being discharged back to her assisted living. We are pending final arrangements by their Social Work. Please refer to the details of the discharge summary that was dictated yesterday. cc: Jaylen Kwong MD
== END 2019-07-04 11:41 | disposition home or self-care (01) | DRG 556 ==
LOC: SUPCPDRO → ED 13:48 → OPS 18:20 → DIRADM 18:20 → 3N 19:38
PROVIDERS: ADMIT Internal Medicine; ATTEND Internal Medicine